=== PATIENT | male | born 1945 | race Caucasian/White ===

== ENCOUNTER 2017-05-30 04:38 | Emergency (ER) | payer MEDICARE, BC ==
[~2017-05-30] VITALS: Ht 167.6 cm; Wt 93.0 kg
--- NOTE | 2017-05-30 04:45 | NUR ---
PATIENT WALKED INTO ER C/O CP PAIN NONRADIATING WITH PAIN INCREASING WHEN TAKING A DEEP BREATH. PAIN STARTED ABOUT 1HR AGO DESCRIBING PAIN CRUSH PAIN 5/10
--- NOTE | 2017-05-30 04:50 | NUR ---
PATIENT STATES TOOK 1 TAB OF BABY ASPIRIN 81MG PRIOR ARRIVAL
[2017-05-30 05:04] LABS: BASOPHILS # (AUTO) 0.1 K/uL (0.0-8.0); BASOPHILS % (AUTO) 0.7 % (0.0-2.0); EOSINOPHILS # (AUTO) 0.3 K/uL (0.0-0.7); EOSINOPHILS % (AUTO) 4.1 % (0.0-7.0); HEMATOCRIT 44.2 % (40-50); HEMOGLOBIN 14.4 G/DL (14.0-18.0); LYMPHOCYTES # (AUTO) 2.7 K/UL (0.8-4.8); LYMPHOCYTES % (AUTO) 32.5 % (20.5-51.5); MEAN CORPUSCULAR HEMOGLOBIN 29.7 UUG (27.0-31.0); MEAN CORPUSCULAR HGB CONC 33 g/dL (32.0-37.0); MEAN CORPUSCULAR VOLUME 91.5 FL (82.0-92.0); MONOCYTES # (AUTO) 0.5 K/UL (0.1-1.30); NEUTROPHILS # (AUTO) 4.7 K/UL (1.8-8.9); NEUTROPHILS % (AUTO) 56.7 % (38.5-71.5); PLATELET COUNT (AUTO) 162 K/UL (150-450); RED BLOOD CELL COUNT(AUTO) 4.83 MIL/UL (4.7-6.1); WHITE BLOOD COUNT (AUTO) 8.3 K/UL (4.0-11.2)
[2017-05-30 05:15] LABS: CARBON DIOXIDE 28 mmol/L (21-32); CHLORIDE 106 mmol/L (98-107); CREATININE 1.1 mg/dL (0.6-1.3); GLUCOSE 196 mg/dL (74-106); POTASSIUM 4.5 mmol/L (3.5-5.1); UREA NITROGEN, BLOOD 16 mg/dL (7-18)
[2017-05-30 05:28] LABS: ALANINE AMINOTRANSFERASE 28 U/L (16-63); ALKALINE PHOSPHATASE 68 U/L (50-136); ASPARTATE AMINOTRANSFERASE 30 U/L (15-37); BILIRUBIN,DIRECT 0.1 mg/dL (0.0-0.2); BILIRUBIN,TOTAL 0.6 mg/dL (0.2-1.0); TOTAL PROTEIN, SERUM 7.6 g/dL (6.4-8.2)
[2017-05-30] MEDS ORDERED: TELMISARTAN 80 MG TABLET PO (05:32)
[2017-05-30] MEDS ORDERED: ASPI-1094 PO (05:34)
[2017-05-30] MEDS ORDERED: CHOL50006 PO (05:34)
--- NOTE | 2017-05-30 06:08 | NUR ---
PATIENT OUT OF UNIT FOR CT SCAN VIA GURNY
--- NOTE | 2017-05-30 06:24 | NUR ---
PATIENT BACK FROM CT SCAN WITH NO DISTRESS NOTED
--- NOTE | 2017-05-30 07:30 | NUR ---
PATIENT IS AWAKE AND ALERT. STATES HE FEELS FINE, NO CHEST PAIN OR SOB AT THIS TIME. STATES HE CANNOT STAY AND HAS TO LEAVE BECAUSE HE HAS A WORK DEADLINE. STATES HE IS AN [employer]. HE IS AWARE THAT THE MD WANTED TO ADMIT HIM TO THE HOSPITAL. HE STATES HE UNDERSTANDS ALL RISKS INCLUDING BUT STILL WANTS TO LEAVE AGAINST MEDICAL ADVICE. DR GUILLAUME NOTIFED.
--- NOTE | 2017-05-30 08:28 | NUR ---
DR GUILLAUME WAS AT BEDSIDE SPEAKING TO PATIENT. DC AND FOLLOW UP INSTRUCTIONS GIVEN AND EXPLAINED TO PATIENT WHO STATES HE UNDERSTANDS ALL INSTRUCTIONS AND RISK OF LEAVING AMA. IV DC'D, CATHETER TIP INTACT, PRESSURE APPLIED, DRESSING APPLIED.
[2017-05-30 08:29] VITALS: BP 122/79
== END 2017-05-30 08:31 | disposition left against medical advice (07) ==
LOC: ER 04:42
DX: R07.9 Chest pain, unspecified (principal); I10 Essential (primary) hypertension; E11.9 Type 2 diabetes mellitus without complications; Z79.82 Long term (current) use of aspirin
CPT/HCPCS: 36415; 71010; 71260; 80048; 80076; 83880; 84484; 85025; 85730; 93005; 96361; 96374; 96375; 99285; A4663; J2270; J2405; J7030; J7050; Q9967; 70030-TC